=== PATIENT | female | born 1990 | race Caucasian/White ===

== ENCOUNTER 2017-01-23 00:35 | Inpatient (IN) | payer OTHER ==
[~2017-01-23 00:35] MED LIST: BRETHINE 1 MG/ML SQ PRN
[2017-01-23] MEDS ORDERED: Cervidil 10 MG VAG SCH (01:00)
[2017-01-23 04:52] LABS: BASOPHIL % 0.2 % (0.0-0.4); Eosinophil % 0.6 % (0.00-5.0); Granulocytes % 71.3 % (36.0-66.0); Lymphocytes % 17.3 % (24.0-44.0); Mean Cell Volume 97.5 fl (78-100); Mean Corpuscular Hemoglobin 32.1 pg (26-32); Mean Platelet Volume 10.7 fl (6-9.5); Monocytes % 10.6 % (0.0-12.0); Platelet Count 190 K/mm3 (150-450); Red Blood Count 3.55 M/mm3 (4.1-5.4); Red Cell Distribution Width 17.3 % (11.5-14.0); White Blood Count 12.2 K/mm3 (4.0-10.5)
[2017-01-23] MEDS ORDERED: XYLOCAINE 1% HCL 20 ML MDV IJ PRN (11:25)
[2017-01-23] MEDS ORDERED: PITOCIN 30 UNITS/ LR 500 ML 500 ML IV SCH (11:30)
[2017-01-23] MEDS ORDERED: Lactated Ringers 1,000 ML IV SCH (11:30)
[2017-01-23] MEDS ORDERED: BRETHINE 1 MG/ML SQ PRN (11:36)
[2017-01-23] MEDS ORDERED: OB EPIDURAL NAROPIN/SUFENTANIL IN NACL EPIDURAL PRN (14:09)
[2017-01-23] MEDS ORDERED: Ephedrine Sulfate 50 MG/ML IV PRN (14:09)
[2017-01-23] MEDS ORDERED: Lactated Ringers 1,000 ML IV ONE (14:09)
[2017-01-23] MEDS ORDERED: Mylicon 80MG PO PRN (18:46)
[2017-01-23] MEDS ORDERED: MOTRIN 400 MG PO PRN (18:46)
[2017-01-23] MEDS ORDERED: Restoril 15 MG PO PRN (18:46)
[2017-01-23] MEDS ORDERED: TYLENOL EXTRA STRENGTH 500 MG PO PRN (18:46)
[2017-01-23] MEDS ORDERED: TUCKS TP PRN (18:46)
[2017-01-23] MEDS ORDERED: CORTISONE 1% CREAM TP PRN (18:46)
[2017-01-23] MEDS ORDERED: Dulcolax 10 MG SUPP PR PRN (18:46)
[2017-01-23] MEDS ORDERED: Dermoplast Spray TP PRN (18:46)
[2017-01-23] MEDS ORDERED: Ambien 10 MG PO PRN (18:46)
[2017-01-23] MEDS ORDERED: Anucort-HC SUPPOSITORY PR PRN (18:46)
[2017-01-23] MEDS ORDERED: NORCO 5/325 MG PO PRN (18:46)
[2017-01-23 19:10] LABS: ALBUMIN 2.5 g/dL (3.4-5.0); ALKALINE PHOSPHATASE 120 U/L (46-116); ANION GAP 14.2 MEQ/L (5-15); BLOOD UREA NITROGEN 8 mg/dL (9-20); CHLORIDE 106 mEq/L (98-107); Carbon Dioxide 23.8 mEq/L (21-32); Glucose 147 MG/DL (70-110); Potassium 3.7 mEq/L (3.5-5.1); SGOT/AST 11 U/L (15-37); SGPT/ALT 14 U/L (12-78); SODIUM 140 mEq/L (136-145); Total Protein 6.2 gm/dL (6.4-8.2)
[2017-01-23] MEDS ORDERED: Norco 10/325 MG Tablet PO SCH (22:00)
[2017-01-23] MEDS: Colace 100 MG PO SCH (22:21)
[2017-01-24 00:32] VITALS: O2SAT 96
[2017-01-24 05:50] LABS: BASOPHIL % 0.1 % (0.0-0.4); Eosinophil % 0.7 % (0.00-5.0); Granulocytes % 70.6 % (36.0-66.0); Lymphocytes % 17.3 % (24.0-44.0); Mean Cell Volume 97.1 fl (78-100); Mean Platelet Volume 10.1 fl (6-9.5); Monocytes % 11.3 % (0.0-12.0); Platelet Count 147 K/mm3 (150-450); Red Blood Count 3.15 M/mm3 (4.1-5.4); Red Cell Distribution Width 17.4 % (11.5-14.0); White Blood Count 11.3 K/mm3 (4.0-10.5)
[2017-01-24 05:56] LABS: Mean Corpuscular Hemoglobin 32.3 pg (26-32)
[2017-01-24 09:27] VITALS: BP 131/79; PULSE 86
[2017-01-24] MEDS ORDERED: FERREX 150 PO SCH (10:00)
[2017-01-24] MEDS: Colace 100 MG PO SCH (15:16)
== END 2017-01-24 13:55 | disposition home or self-care (01) | DRG 775 ==
LOC: OB 00:35 → OBSVTOIN 13:40
PROVIDERS: ADMIT Family Medicine; ATTEND Family Medicine
PROC: 10E0XZZ Delivery of Products of Conception, External Approach (ICD-10-PCS; principal; 2017-01-23)
DX: O80 Encounter for full-term uncomplicated delivery (principal); Z3A.39 39 weeks gestation of pregnancy; Z37.0 Single live birth
CPT/HCPCS: 01967; 36415; 80053; 80307; 84550; 85025; G0378; J2590; J2795; A9270-GY

== ENCOUNTER 2020-01-12 18:35 | Emergency (ER) | payer OTHER ==
[2020-01-12 18:59] VITALS: O2SAT 99
[2020-01-12 19:11] LABS: Absolute Neutrophil Ct (ANC) 7.49 (1.4-6.9); BASOPHIL % 0.2 % (0.0-0.4); Basophil (Absolute #) 0.02 (0-0.4); Eosinophil % 1.1 % (0.00-5.0); Eosinophil (Absolute #) 0.11 (0-0.5); Hematocrit 33.1 % (35-47); Hemoglobin 11.1 gm/dl (12.0-16.0); Lymphocyte (Absolute #) 1.35 (1.0-4.6); Lymphocytes % 13.9 % (24.0-44.0); Mean Cell Volume 95.7 fl (78-100); Mean Corpuscular Hemoglobin 32.1 pg (26-32); Mean Corpuscular Hgb Concent. 33.5 g/dl (32-36); Monocyte (Absolute #) 0.77 (0.0-1.3); Monocytes % 7.9 % (0.0-12.0); Neutrophil % 76.9 % (36.0-66.0); Platelet Count 158 K/mm3 (150-450); Red Blood Count 3.46 M/mm3 (4.1-5.4); Red Cell Distribution Width 16.4 % (11.5-14.0); White Blood Count 9.7 K/mm3 (4.0-10.5)
[2020-01-12 19:14] LABS: ISTAT CREA 0.6 mg/dL (0.6-1.3)
[2020-01-12 19:17] LABS: Appearance CLEAR (CLEAR); Bilirubin NEGATIVE (NEGATIVE); Blood NEGATIVE Ery/ul (0-5); Glucose NEGATIVE (NEGATIVE); Ketones NEGATIVE (NEGATIVE); Leukocyte Esterase NEGATIVE (NEGATIVE); Nitrite NEGATIVE (NEGATIVE); Protein,Urine Dip NEGATIVE (Negative); Specific Gravity 1.011 (1.005-1.025); Urobilinogen NEGATIVE mg/dL (0-1)
--- NOTE | 2020-01-12 19:53 | ERPHSYRPT ---
- History of Present Illness Time Seen by Provider: 01/12/20 18:55 Source: patient Exam Limitations: no limitations Patient Subjective Stated Complaint: pt here for swelling to hands and feet for her whole , but she states her legs and hands turned blue today and she has tingling both hands and legs. Triage Nursing Assessment: pt walked in, alert. resp easy, skin w/d/p. no swelling hands or legs, cap refill 3 seconds, strong radial pulse, nail beds pink Physician History: This is a 29-year-old white female who was approximately 24 weeks . Patient states that prior to her being she had episodes where her hands and feet would be tingling and have a numbness type burning pain. It has worsened during her . Patient did have a recent elevated RA titer and MOHINI titer. She is also had higher than usual blood pressure for her during this . Her OB doctor has been monitoring her every 1 to 2 weeks. Her urinalysis has been negative for any protein. Today, her hands had a mildly purple tint to them. She states he did not actually turn purple they just appeared to have a tint present. She also feels that there is swelling in both hands as well as swollen in both feet. Her primary care physician told her to come to the emergency room to be evaluated. Patient denies shortness of breath , she denies chest pain, she denies abdominal pain. Timing/Duration: today Severity: mild Modifying Factors: Improves With: nothing Associated Symptoms: denies symptoms Allergies/Adverse Reactions: morphine Allergy (Mild, Verified 01/12/20 18:58) vomitting Home Medications: No Reportable Medications [No Reported Medications] 01/12/20 [History] Hx Tetanus, Diphtheria Vaccination/Date Given: No (unknown) Hx Influenza Vaccination/Date Given: Yes (4 yrs ago) Hx Pneumococcal Vaccination/Date Given: (unknown) Immunizations Up to Date: Yes Travel Risk - International Travel Have you traveled outside of the country in past 3 weeks: No Have you or anyone close to you been diagnosed with or: No Do your reside in a community with a known COVID-19 case?: Yes If Yes where:: [place] - Coronavirus Screening Has patient experienced Coronavirus symptoms: No - Review of Systems Constitutional: No Symptoms Eyes: No Symptoms Ears, Nose, & Throat: No Symptoms Respiratory: No Symptoms Cardiac: No Symptoms Abdominal/Gastrointestinal: No Symptoms Genitourinary Symptoms: No Symptoms Musculoskeletal: Other (Paresthesias and swelling to bilateral hands and feet) Skin: No Symptoms Neurological: Parasthesia (Lateral hands and feet) Psychological: No Symptoms Endocrine: No Symptoms Hematologic/Lymphatic: No Symptoms Immunological/Allergic: No Symptoms All Other Systems: Reviewed and Negative - Past Medical History Pertinent Past Medical History: No Neurological History: Migraines ENT History: No Pertinent History Cardiac History: No Pertinent History Respiratory History: No Pertinent History Endocrine Medical History: No Pertinent History Musculoskeletal History: Other GI Medical History: Gallbladder Disease History: No Pertinent History Psycho-Social History: Anxiety, Attention Deficit Disorder, Bipolar, Depression Female Reproductive Disorders: No Pertinent History Other Medical History: body aches all over and states she will be tested for arthritis and fibromyalgia after . - Past Surgical History Past Surgical History: Yes (Gall bladder and diaphragm) Neuro Surgical History: No Pertinent History Cardiac: No Pertinent History Respiratory: Other Gastrointestinal: Cholecystectomy Genitourinary: No Pertinent History Musculoskeletal: No Pertinent History Female Surgical History: No Pertinent History Other Surgical History: diaphragm surgery as an infant - Social History Smoking Status: Light tobacco smoker How long have you smoked: 12 Exposure to second hand smoke: No Drug Use: marijuana Patient Lives Alone: No - Female History Hx Last Menstrual Period: jul 2020 Hx Now: Yes Expected Date of Delivery: 05/07/20 - Nursing Vital Signs Nursing Vital Signs: Initial Vital Signs Temperature 98.3 F 01/12/20 18:46 Pulse Rate 86 01/12/20 18:46 Respiratory Rate 18 01/12/20 18:46 Blood Pressure 162/90 01/12/20 18:46 O2 Sat by Pulse Oximetry 99 01/12/20 18:46 Pain Scale Pain Intensity 5 - Physical Exam General Appearance: no apparent distress, alert, anxiety Eye Exam: PERRL/EOMI, eyes nml inspection Ears, Nose, Throat Exam: normal ENT inspection, moist mucous membranes Neck Exam: normal inspection, non-tender, supple, full range of motion Respiratory Exam: normal breath sounds, lungs clear, No chest tenderness, No respiratory distress Cardiovascular Exam: regular rate/rhythm, normal heart sounds, normal peripheral pulses Gastrointestinal/Abdomen Exam: soft, other (Abdomen.) Pelvic Exam: not done Rectal Exam: not done Back Exam: normal inspection, normal range of motion, No CVA tenderness, No vertebral tenderness Extremity Exam: normal inspection, normal range of motion, pelvis stable Neurologic Exam: alert, oriented x 3, cooperative, 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 nml as tested, normal mood/affect, nml cerebellar function, nml station & gait, sensation nml Skin Exam: normal color, warm, dry Lymphatic Exam: No adenopathy SpO2 Interpretation: normal SpO2: 99 O2 Delivery: Room Air - Course Nursing assessment & vital signs reviewed: Yes Ordered Tests: Active Orders 24 hr Category Date Time Status CBC W DIFF Stat Lab 01/12/20 19:08 Completed UA W/RFX UR CULTURE Stat Lab 01/12/20 19:05 Completed Lab/Rad Data: Laboratory Result Diagrams 01/12/20 19:08 01/12/20 19:08 Laboratory Results 01/12/20 01/12/20 01/12/20 Range/Units 19:08 19:08 19:05 WBC 9.7 (4.0-10.5) K/mm3 RBC 3.46 L (4.1-5.4) M/mm3 Hgb 11.1 L (12.0-16.0) gm/dl Hct 33.1 L (35-47) % MCV 95.7 (78-100) fl MCH 32.1 H (26-32) pg MCHC 33.5 (32-36) g/dl RDW 16.4 H (11.5-14.0) % Plt Count 158 (150-450) K/mm3 MPV 10.0 (7.5-11.0) fl Gran % 76.9 H (36.0-66.0) % Eos # (Auto) 0.11 (0-0.5) Absolute Lymphs (auto) 1.35 (1.0-4.6) Absolute Monos (auto) 0.77 (0.0-1.3) Lymphocytes % 13.9 L (24.0-44.0) % Monocytes % 7.9 (0.0-12.0) % Eosinophils % 1.1 (0.00-5.0) % Basophils % 0.2 (0.0-0.4) % Absolute Granulocytes 7.49 H (1.4-6.9) Basophils # 0.02 (0-0.4) Sodium Direct 137 L (138-146) mmol/L Potassium 3.8 (3.5-4.9) mmol/L Chloride 103 (98-109) mmol/L Carbon Dioxide 23 L (24-29) mmol/L Venous BUN 8 (8-26) mg/dL Creatinine 0.6 (0.6-1.3) mg/dL Glucose 99 (70-105) mg/dL Ionized Calcium 1.19 (1.12-1.32) mmol/L Urine Color YELLOW (YELLOW) Urine Appearance CLEAR (CLEAR) Urine pH 6.0 (5-6) Ur Specific [place] 1.011 (1.005-1.025) Urine Protein NEGATIVE (Negative) Urine Ketones NEGATIVE (NEGATIVE) Urine Blood NEGATIVE (0-5) José/ul Urine Nitrite NEGATIVE (NEGATIVE) Urine Bilirubin NEGATIVE (NEGATIVE) Urine Urobilinogen NEGATIVE (0-1) mg/dL Ur Leukocyte Esterase NEGATIVE (NEGATIVE) Urine WBC (Auto) NONE (0-5) /HPF Urine RBC (Auto) NONE (0-2) /HPF U Epithel Cells (Auto) NONE (FEW) /HPF Urine Bacteria (Auto) NONE (NEGATIVE) /HPF Urine Culture Reflexed NO (NO) Urine Glucose NEGATIVE (NEGATIVE) mg/dL - Progress Progress: unchanged Counseled pt/family regarding: lab results, diagnosis, need for follow-up - Departure Departure Disposition: Home Clinical Impression: Paresthesia of both hands, Paresthesia of both feet, Swelling of both hands, Bilateral swelling of feet Condition: Stable Critical Care Time: No Referrals: JOCELINE JAEGER [Primary Care Provider] - Additional Instructions: Take Tylenol for the pain. 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
[2020-01-12 20:12] VITALS: BP 139/89; PULSE 87
== END 2020-01-12 20:11 | disposition home or self-care (01) ==
LOC: ED 18:35
DX: R20.2 Paresthesia of skin (principal); M79.89 Other specified soft tissue disorders; F31.9 Bipolar disorder, unspecified; M19.90 Unspecified osteoarthritis, unspecified site; Z72.0 Tobacco use; F19.90 Other psychoactive substance use, unspecified, uncomplicated
CPT/HCPCS: 36415; 80047; 81001; 85025; 99284

== ENCOUNTER 2020-04-11 18:12 | Observation (INO) | payer OTHER ==
[2020-04-11 19:51] LABS: Amphetamine,Urine NEGATIVE (NEGATIVE); Barbiturate,Urine NEGATIVE (NEGATIVE); Benzodiazepine,Urine NEGATIVE (NEGATIVE); Cocaine,Urine NEGATIVE (NEGATIVE); Methadone,Urine NEGATIVE (NEGATIVE); Opiate,Urine NEGATIVE (NEGATIVE); PCP,Urine NEGATIVE (NEGATIVE); THC,Urine NEGATIVE (NEGATIVE)
[2020-04-11 20:12] LABS: Absolute Neutrophil Ct (ANC) 7.45 (1.4-6.9); BASOPHIL % 0.2 % (0.0-0.4); Basophil (Absolute #) 0.02 (0-0.4); Eosinophil % 0.4 % (0.00-5.0); Eosinophil (Absolute #) 0.04 (0-0.5); Hematocrit 32.7 % (35-47); Hemoglobin 10.6 gm/dl (12.0-16.0); Lymphocyte (Absolute #) 1.63 (1.0-4.6); Lymphocytes % 16.5 % (24.0-44.0); Mean Cell Volume 97.3 fl (78-100); Mean Corpuscular Hemoglobin 31.5 pg (26-32); Mean Corpuscular Hgb Concent. 32.4 g/dl (32-36); Mean Platelet Volume 9.6 fl (7.5-11.0); Monocyte (Absolute #) 0.76 (0.0-1.3); Monocytes % 7.7 % (0.0-12.0); Neutrophil % 75.2 % (36.0-66.0); Platelet Count 197 K/mm3 (150-450); Red Blood Count 3.36 M/mm3 (4.1-5.4); White Blood Count 9.9 K/mm3 (4.0-10.5)
[2020-04-11 20:23] LABS: ALBUMIN 3.3 g/dL (3.5-5.0); ALKALINE PHOSPHATASE 131 U/L (38-126); ANION GAP 9.7 MEQ/L (5-15); BLOOD UREA NITROGEN 12 mg/dL (7-17); CHLORIDE 107 mmol/L (98-107); Calcium 8.6 mg/dL (8.4-10.2); Carbon Dioxide 22 mmol/L (22-30); Creatinine 1 0.75 mg/dL (0.52-1.04); Glucose 122 mg/dL (74-106); Potassium 3.7 mmol/L (3.5-5.1); SGOT/AST 15 U/L (14-36); SGPT/ALT 10 U/L (0-35); SODIUM 135 mmol/L (137-145); Total Protein 6.3 g/dL (6.3-8.2); Uric Acid 4.1 mg/dL (2.6-6.0)
--- NOTE | 2020-04-12 09:24 | XRAY ---
Indication: well-being. Two-dimensional OB ultrasound performed. Comparison: March 12, 2020. There is again a single viable intrauterine in cephalic presentation. heart rate 130 BPM. anatomy previously documented. Anterior placenta without abruption/previa. BPD measures 8.40 cm corresponding to 33 weeks 6 days. HC measures 31.46 cm corresponding to 35 weeks 2 days. AC measures 30.69 cm corresponding to 34 weeks 4 days. FL measures 7.19 cm corresponding to 36 weeks 6 days. Estimated weight 5 lbs. 12 oz., +/-14 ounces. Approximately 22 percentile. MARCOS is 14.3 cm. Impression: Again single viable intrauterine with mean gestational age 35 weeks 1 day. There has been progression of with fetus now measuring 9 days smaller with respect to first exam September 22, 2019.
--- NOTE | 2020-04-12 09:26 | XRAY ---
Indication: well-being. Ultrasound biophysical profile exam performed. Comparison: None There is a single viable intrauterine with heart rate 130 BPM. Four-quadrant MARCOS is 14.3 cm. 2 points given for breathing, movements, tone, and qualitative amniotic fluid volume. Impression: Total biophysical profile score is 8 out of 8.
[2020-04-12 20:10] LABS: 24 HR TOT. PROTEIN CALCULATION 0.18 GM/DAY (0.04-0.15)
[2020-04-12] MEDS ORDERED: TYLENOL 325 MG PO PRN (21:18)
[2020-04-12] MEDS: Abilify 10 MG PO SCH (21:45)
[2020-04-12] MEDS: Trandate 100 MG PO SCH (21:45)
[2020-04-12] MEDS ORDERED: NORCO 5/325 MG PO ONE (22:00)
[2020-04-12] MEDS ORDERED: NORCO 5/325 MG PO PRN (23:14)
[2020-04-13 00:28] VITALS: O2SAT 99
[2020-04-13] MEDS: Trandate 100 MG PO SCH (10:09)
[2020-04-13] MEDS: Abilify 10 MG PO SCH (10:09)
[2020-04-13 13:56] VITALS: BP 135/87; PULSE 84
== END 2020-04-13 13:55 | disposition home or self-care (01) ==
LOC: OB 18:12
PROVIDERS: ADMIT Family Medicine; ATTEND Family Medicine
DX: O13.3 Gestational [pregnancy-induced] hypertension without significant proteinuria, third trimester (principal); Z3A.36 36 weeks gestation of pregnancy; F41.9 Anxiety disorder, unspecified
CPT/HCPCS: 36415; 76816; 76819; 80053; 80307; 81050; 84156; 84550; 85025; G0378; A9270-GY

== ENCOUNTER 2020-04-18 08:30 | Inpatient (IN) | payer OTHER ==
[2020-04-18] MEDS ORDERED: TRANDATE 20 MG/5 ML SYRINGE IV PRN (14:29)
--- NOTE | 2020-04-18 15:29 | XRAY ---
Indication: well-being. Ultrasound biophysical profile exam performed. Comparison: April 12, 2020. Again there is a single viable intrauterine with heart rate 141 bpm. Four-quadrant MARCOS is 13.7 cm. 2 points given for movement, tone, and qualitative amniotic fluid volume. 0 points for breathing. Impression: Total biophysical profile score is now 6 out of 8.
[2020-04-18 16:13] LABS: ALBUMIN 3.7 g/dL (3.5-5.0); ALKALINE PHOSPHATASE 173 U/L (38-126); ANION GAP 10.4 MEQ/L (5-15); BLOOD UREA NITROGEN 9 mg/dL (7-17); CHLORIDE 105 mmol/L (98-107); Calcium 8.8 mg/dL (8.4-10.2); Carbon Dioxide 22 mmol/L (22-30); Creatinine 1 0.69 mg/dL (0.52-1.04); EST GLOMERULAR FILTRATION RATE > 60.0 ML/MIN; Glucose 78 mg/dL (74-106); LDH-LACTATE DEHYDROGENASE 161 U/L (120-246); SGOT/AST 24 U/L (14-36); SGPT/ALT 12 U/L (0-35); SODIUM 133 mmol/L (137-145)
[2020-04-18 16:14] LABS: Absolute Neutrophil Ct (ANC) 9.88 (1.4-6.9); BASOPHIL % 0.2 % (0.0-0.4); Basophil (Absolute #) 0.02 (0-0.4); Eosinophil % 0.3 % (0.00-5.0); Eosinophil (Absolute #) 0.04 (0-0.5); Hematocrit 33.8 % (35-47); Hemoglobin 11.1 gm/dl (12.0-16.0); Lymphocyte (Absolute #) 1.53 (1.0-4.6); Lymphocytes % 12.4 % (24.0-44.0); Mean Cell Volume 96.8 fl (78-100); Mean Corpuscular Hemoglobin 31.8 pg (26-32); Mean Corpuscular Hgb Concent. 32.8 g/dl (32-36); Mean Platelet Volume 9.8 fl (7.5-11.0); Monocyte (Absolute #) 0.85 (0.0-1.3); Monocytes % 6.9 % (0.0-12.0); Neutrophil % 80.2 % (36.0-66.0); Platelet Count 196 K/mm3 (150-450); Red Blood Count 3.49 M/mm3 (4.1-5.4); Red Cell Distribution Width 17.1 % (11.5-14.0); White Blood Count 12.3 K/mm3 (4.0-10.5)
[2020-04-18 16:45] LABS: Barbiturate,Urine NEGATIVE (NEGATIVE); Benzodiazepine,Urine NEGATIVE (NEGATIVE); Cocaine,Urine NEGATIVE (NEGATIVE); Creatinine, Urine Random 169.2 mg/dl (30-125); Methadone,Urine NEGATIVE (NEGATIVE); Opiate,Urine NEGATIVE (NEGATIVE); PCP,Urine NEGATIVE (NEGATIVE); THC,Urine NEGATIVE (NEGATIVE)
[2020-04-18] MEDS ORDERED: XYLOCAINE 1% HCL 20 ML MDV IJ PRN (17:50)
[2020-04-18 17:53] LABS: Amphetamine,Urine POSITIVE (NEGATIVE)
[2020-04-18] MEDS ORDERED: PITOCIN 30 UNITS/ LR 500 ML 30 UNITS/500 ML IV.SOLN. IV SCH (18:00)
[2020-04-18] MEDS: CYTOTEC PO SCH ×3 (18:51→23:54)
[2020-04-18] MEDS ORDERED: TYLENOL 325 MG PO PRN (21:20)
[2020-04-18] MEDS: Trandate 100 MG PO SCH (21:30)
[2020-04-18] MEDS: Abilify 10 MG PO SCH (21:31)
[2020-04-19] MEDS: CYTOTEC PO SCH ×3 (01:53→05:51)
[2020-04-19] MEDS: Trandate 100 MG PO SCH ×2 (09:23→22:04)
[2020-04-19] MEDS: Abilify 10 MG PO SCH ×2 (09:24→22:03)
[2020-04-19] MEDS ORDERED: PITOCIN 30 UNITS/ LR 500 ML 30 UNITS/500 ML IV.SOLN. IV SCH (10:00)
[2020-04-19] MEDS ORDERED: Lactated Ringers 1,000 ML IV ONE (10:00)
[2020-04-19] MEDS ORDERED: Ephedrine Sulfate 50 MG/ML IV PRN (10:00)
[2020-04-19] MEDS ORDERED: OB EPIDURAL NAROPIN/SUFENTANIL IN NACL EPIDURAL PRN (10:00)
[2020-04-19] MEDS ORDERED: Lactated Ringers 1,000 ML IV SCH (10:00)
[2020-04-19] MEDS ORDERED: TYLENOL EXTRA STRENGTH 500 MG PO PRN (14:18)
[2020-04-19] MEDS ORDERED: Dermoplast Spray TP PRN (14:18)
[2020-04-19] MEDS ORDERED: Dulcolax 10 MG SUPP PR PRN (14:22)
[2020-04-19] MEDS ORDERED: LANSINOH 40 GM TOP PRN (14:22)
[2020-04-19] MEDS ORDERED: TUCKS TP PRN (14:22)
[2020-04-19] MEDS ORDERED: Restoril 15 MG PO PRN (14:22)
[2020-04-19] MEDS ORDERED: Anucort-HC SUPPOSITORY PR PRN (14:22)
[2020-04-19] MEDS ORDERED: Mylicon 80MG PO PRN (14:22)
[2020-04-19] MEDS ORDERED: NORCO 5/325 MG PO PRN (14:22)
[2020-04-19] MEDS ORDERED: Ambien 10 MG PO PRN (14:22)
[2020-04-19] MEDS ORDERED: CORTISONE 1% CREAM TP PRN (14:22)
[2020-04-19] MEDS ORDERED: BENADRYL 50 MG/ML IV PRN (14:23)
[2020-04-19] MEDS: NICODERM CQ 14 MG TOP SCH (15:25)
[2020-04-19] MEDS: MOTRIN 400 MG PO PRN (22:04)
[2020-04-19] MEDS: Colace 100 MG PO SCH (22:04)
[2020-04-20] MEDS: MOTRIN 400 MG PO PRN ×2 (04:09→19:57)
[2020-04-20 04:26] VITALS: O2SAT 100
[2020-04-20 05:49] LABS: Absolute Neutrophil Ct (ANC) 7.44 (1.4-6.9); BASOPHIL % 0.2 % (0.0-0.4); Basophil (Absolute #) 0.02 (0-0.4); Eosinophil % 0.8 % (0.00-5.0); Eosinophil (Absolute #) 0.08 (0-0.5); Hematocrit 32.2 % (35-47); Hemoglobin 10.3 gm/dl (12.0-16.0); Lymphocyte (Absolute #) 1.78 (1.0-4.6); Lymphocytes % 17.6 % (24.0-44.0); Mean Cell Volume 98.8 fl (78-100); Mean Corpuscular Hemoglobin 31.6 pg (26-32); Mean Platelet Volume 9.6 fl (7.5-11.0); Monocyte (Absolute #) 0.82 (0.0-1.3); Monocytes % 8.1 % (0.0-12.0); Neutrophil % 73.3 % (36.0-66.0); Platelet Count 163 K/mm3 (150-450); Red Blood Count 3.26 M/mm3 (4.1-5.4); White Blood Count 10.1 K/mm3 (4.0-10.5)
[2020-04-20] MEDS: Colace 100 MG PO SCH ×2 (09:45→21:16)
[2020-04-20] MEDS: Trandate 100 MG PO SCH ×2 (09:45→21:16)
[2020-04-20] MEDS: FERREX 150 PO SCH (09:45)
[2020-04-20] MEDS: NICODERM CQ 14 MG TOP SCH (15:42)
[2020-04-20] MEDS ORDERED: Abilify 10 MG PO SCH (22:00)
[2020-04-21] MEDS: MOTRIN 400 MG PO PRN (02:00)
[2020-04-21 08:09] VITALS: BP 133/80; PULSE 78
--- NOTE | 2020-04-21 08:36 | PCM.DS ---
Discharge Summary Date of Admission: 04/19/20 08:30 Admitting Physician: DEANDRE WALKER MD Primary Care Provider: JOCELINE JAEGER Allergies Allergies morphine Allergy (Mild, Verified 04/11/20 19:05) vomitting Hospital Summary - Hospital Course Hospital Course: patient induced at 37wks EGA for gest htn, amphetamines on drug screen. doing great , mild lochia, bottle feeding. - Vitals & Intake/Output Vital Signs: Vital Signs Temperature 98.2 F 04/21/20 08:00 Pulse Rate 78 04/21/20 08:00 Respiratory Rate 18 04/21/20 08:00 Blood Pressure 133/80 04/21/20 08:00 O2 Sat by Pulse Oximetry 100 04/20/20 04:00 Intake & Output: Intake & Output 04/18/20 04/19/20 04/20/20 04/21/20 11:59 11:59 11:59 11:59 Intake Total 960 1580 Output Total 450 Balance 510 1580 Weight 92.533 kg - Lab Result Diagrams: 04/20/20 05:39 04/18/20 15:56 Micro Results-Entire Visit: Microbiology 04/19/20 12:42 Urine Culture - Preliminary Urine, Indwelling Catheter NO GROWTH TO DATE - Procedures and Test Procedures and Tests throughout Hospitalization: Therapy Orders & Screens 04/19/20 13:14 Standby STAT Comment: Diagnosis: GESTATIONAL HYPERTENSION Discharge Exam General Appearance: no apparent distress, alert Respiratory Exam: normal breath sounds, lungs clear, No respiratory distress Cardiovascular Exam: regular rate/rhythm, normal heart sounds Gastrointestinal/Abdomen Exam: soft, No tenderness, No mass Skin Exam: normal color, warm, dry Final Diagnosis/Problem List - Final Discharge Diagnosis/Problem (1) Vaginal delivery Current Visit: Yes Status: Acute Code(s): O80 - ENCOUNTER FOR FULL-TERM UNCOMPLICATED DELIVERY (2) Gestational hypertension Current Visit: Yes Status: Acute Assessment & Plan: continue labetalol, well controlled at this time Code(s): O13.9 - GESTATIONAL HTN W/O SIGNIFICANT PROTEINURIA, UNSP TRIMESTER - Discharge Disposition: Home, Self-Care Condition: Stable Prescriptions: Continue Labetalol HCl 100 mg [Trandate 100 MG] 100 mg PO BID ARIPiprazole [Aripiprazole] 5 mg PO HS Follow up with: JOCELINE JAEGER [Primary Care Provider] - 1 Week
[2020-04-21] MEDS ORDERED: Adacel Vial IM ONE (10:00)
[2020-04-21] MEDS: Colace 100 MG PO SCH (10:22)
[2020-04-21] MEDS: FERREX 150 PO SCH (10:22)
[2020-04-21] MEDS: Trandate 100 MG PO SCH (10:22)
== END 2020-04-21 13:30 | disposition home or self-care (01) | DRG 807 ==
LOC: OB 08:30 → OBSVTOIN 04-19 08:30
PROVIDERS: ADMIT Family Medicine; ATTEND Family Medicine
PROC: 10E0XZZ Delivery of Products of Conception, External Approach (ICD-10-PCS; principal; 2020-04-20)
DX: O13.4 Gestational [pregnancy-induced] hypertension without significant proteinuria, complicating childbirth (principal); Z37.0 Single live birth; Z3A.37 37 weeks gestation of pregnancy
CPT/HCPCS: 36415; 59025; 76816; 76819; 80053; 80307; 82570; 83615; 84156; 85025; 87086; 90471; 90715; 94799; G0378; J1200; J2590; J2795; A9270-GY

== ENCOUNTER 2022-03-18 09:27 | Emergency (ER) | payer OTHER ==
[2022-03-18] MEDS ORDERED: Erythromycin 3.5 GM OPHTH. OP ONE (10:00)
--- NOTE | 2022-03-18 10:02 | ERPHSYRPT ---
- History of Present Illness Time Seen by Provider: 03/18/22 10:00 Historian: patient Exam Limitations: no limitations Patient Subjective Stated Complaint: C/O sore throat, "profuse sweating", new cough, some abdominal pain at times but not right now. Triage Nursing Assessment: Patient ambulated back to ED without difficulties. Patient noted to be very anxious. She is speaking very rapidly and changing topics of conversation often. It is hard to follow patient's conversation at times due to jumping around from one thing to the next in topic of conversation. She is alert and oriented. Skin noted to be moist. An occassional, weak, non-productive cough noted while assessing patient. Physician History: Patient is a 31-year-old female presents to emergency department for evaluation of epigastric pain. She states epigastric pain started this morning. Patient states that she has had epigastric pain in association with a "bad gallbladder". Patient states the pain feels the same way as it did when she had her "bad gallbladder". Pain described as an ache that is localized. No radiation. Pain is minimal at this time. However patient states pain was 7 out of 10 at its worst. No trauma. No fever. No nausea no vomiting. No diarrhea. No no rash. Patient also states that she has been experiencing intermittent cramping in her legs. No back pain. Patient also states that she believes she has bilateral conjunctivitis. Both eyes are matted shut this morning. Patient states her eyes appear more red than normal. Patient is speaking quickly and appears to become frustrated when asked specific questions regarding her complaints. Patient also requesting that we check her thyroid gland. Patient states that her mother has a history of thyroid dysfunction and is requesting that we evaluate patient's thyroid. Patient voices no other complaints or concerns this time. Timing/Duration: today Activities at Onset: none Quality: aching Abdominal Pain Onset Location: epigastric Pain Radiation: no radiation Severity of Pain-Max: moderate Severity of Pain-Current: mild Modifying Factors: Improves With: nothing Associated Symptoms: denies symptoms, No chest pain, No fever/chills, No heartburn, No shortness of breath, No syncope, No vomiting, No weakness Previous symptoms: same symptoms as today Allergies/Adverse Reactions: morphine Allergy (Mild, Verified 03/18/22 09:42) vomitting Home Medications: Bupropion HCl [Wellbutrin Xl] 1 tab PO DAILY 03/18/22 [History] Lisinopril/Hydrochlorothiazide [Lisinopril-Hctz 10-12.5 mg Tab] 1 tab PO DAILY 03/18/22 [History] Lurasidone HCl [Latuda] 1 tab PO DAILY 03/18/22 [History] Hx Tetanus, Diphtheria Vaccination/Date Given: Yes Hx Influenza Vaccination/Date Given: No Hx Pneumococcal Vaccination/Date Given: No Immunizations Up to Date: Yes Travel Risk - International Travel Have you traveled outside of the country in past 3 weeks: No - Coronavirus Screening Are you exhibiting any of the following symptoms?: Yes Symptoms: Cough: New Onset, Shortness of Breath - Vaccine Status Have you recieved a Covid-19 vaccination: Yes Crate Maker: zLense - Vaccination Dates Date of 2cond Vaccination (if applicable): 2020 - Review of Systems Constitutional: No Symptoms, No Fever, No Chills Eyes: No Symptoms Ears, Nose, & Throat: No Symptoms Respiratory: No Symptoms, No Cough, No Dyspnea Cardiac: No Symptoms, No Chest Pain, No Edema, No Syncope Abdominal/Gastrointestinal: No Symptoms, No Abdominal Pain, No Nausea, No Vomiting, No Diarrhea Genitourinary Symptoms: No Symptoms, No Dysuria Musculoskeletal: No Symptoms, No Back Pain, No Neck Pain Skin: No Symptoms, No Rash Neurological: No Symptoms, No Dizziness, No Focal Weakness, No Sensory Changes Psychological: No Symptoms Endocrine: No Symptoms Hematologic/Lymphatic: No Symptoms Immunological/Allergic: No Symptoms All Other Systems: Reviewed and Negative - Past Medical History Pertinent Past Medical History: Yes Neurological History: Migraines ENT History: No Pertinent History Cardiac History: No Pertinent History Respiratory History: No Pertinent History Endocrine Medical History: No Pertinent History Musculoskeletal History: Other GI Medical History: Gallbladder Disease History: No Pertinent History Psycho-Social History: Anxiety, Attention Deficit Disorder, Bipolar, Depression Female Reproductive Disorders: No Pertinent History Other Medical History: body aches all over and states she will be tested for arthritis and fibromyalgia after . - Past Surgical History Past Surgical History: Yes (Gall bladder and diaphragm) Neuro Surgical History: No Pertinent History Cardiac: No Pertinent History Respiratory: Other Gastrointestinal: Cholecystectomy Genitourinary: No Pertinent History Musculoskeletal: No Pertinent History Female Surgical History: No Pertinent History Other Surgical History: diaphragm surgery as an infant - Social History Smoking Status: Current every day smoker How long have you smoked: 20 years Exposure to second hand smoke: Yes Drug Use: none Patient Lives Alone: No - Female History Hx Last Menstrual Period: A weeka go Hx Now: No - Nursing Vital Signs Nursing Vital Signs: Initial Vital Signs Temperature 97.4 F 03/18/22 09:44 Pulse Rate 107 H 03/18/22 09:44 Respiratory Rate 20 03/18/22 09:44 Blood Pressure 144/116 03/18/22 09:44 O2 Sat by Pulse Oximetry 100 03/18/22 09:44 Pain Scale Pain Intensity 0 - Physical Exam General Appearance: no apparent distress, alert Eye Exam: PERRL/EOMI, eyes nml inspection Ears, Nose, Throat Exam: normal ENT inspection, TMs normal, pharynx normal, moist mucous membranes Neck Exam: normal inspection, non-tender, supple, full range of motion Respiratory Exam: normal breath sounds, lungs clear, airway intact, No respiratory distress Cardiovascular Exam: regular rate/rhythm, normal heart sounds, normal peripheral pulses Gastrointestinal/Abdomen Exam: soft, tenderness (Mild epigastric tenderness), No normal bowel sounds, No mass Back Exam: normal inspection, normal range of motion, No CVA tenderness, No vertebral tenderness Extremity Exam: normal inspection, normal range of motion, pelvis stable Neurologic Exam: alert, oriented x 3, cooperative, normal mood/affect, nml cerebellar function, sensation nml, No motor deficits Skin Exam: normal color, warm, dry SpO2 Interpretation: normal SpO2: 100 O2 Delivery: Room Air - Course Nursing assessment & vital signs reviewed: Yes EKG Interpreted by Me: RATE, Sinus Tach (100), NORMAL AXIS, NORMAL INTERVALS - CT Exams Abdomen/Pelvis CT Interpretation: Tele-radiologist Report (Splenomegaly, 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) Ordered Tests: Active Orders 24 hr Category Date Time Status EKG-ER Only STAT Care 03/18/22 10:03 Active IV Insertion STAT Care 03/18/22 10:03 Active ABDOMEN AND PELVIS W/0 CONTRAS [CT] Stat Exams 03/18/22 10:04 Completed CBC W DIFF Stat Lab 03/18/22 10:12 Completed CMP Stat Lab 03/18/22 10:12 Completed HCG,QUALITATIVE URINE Stat Lab 03/18/22 11:11 Completed LIPASE Stat Lab 03/18/22 10:12 Completed TROPONIN Q3H Lab 03/18/22 10:12 Completed TROPONIN Q3H Lab 03/18/22 13:15 Ordered TROPONIN Q3H Lab 03/18/22 16:15 Ordered TROPONIN Q3H Lab 03/18/22 19:15 Ordered TROPONIN Q3H Lab 03/18/22 22:15 Ordered TSH [TSH, 3RD Generation] Stat Lab 03/18/22 10:12 Completed UA W/RFX CULTURE Stat Lab 03/18/22 11:11 Completed Urine Triage Profile Stat Lab 03/18/22 11:11 Completed Medication Summary Discontinued Medications Generic Name Dose Route Start Last Admin Trade Name Freq PRN Reason Stop Dose Admin Erythromycin 3.5 gm 03/18/22 10:00 03/18/22 10:14 Erythromycin Base 3.5 Gm Tube Eye Ointment OP 03/18/22 10:01 Not Given STAT ONE Erythromycin Confirm 03/18/22 10:05 Erythromycin Base 1 Gm Tube Eye Ointment Administered 03/18/22 10:06 Dose 1 gm .ROUTE .STK-MED ONE Erythromycin 1 gm 03/18/22 10:06 03/18/22 10:09 Erythromycin Base 1 Gm Tube Eye Ointment OP 03/18/22 10:07 1 gm STAT STA Administration Lab/Rad Data: Laboratory Result Diagrams 03/18/22 10:12 03/18/22 10:12 Laboratory Results 03/18/22 03/18/22 03/18/22 Range/Units 11:11 11:11 11:11 WBC (4.0-10.5) x10^3/uL RBC (4.1-5.4) x10^6/uL Hgb (12.0-16.0) g/dL Hct (35-47) % MCV (78-100) fL MCH (26-32) pg MCHC (32-36) g/dL RDW (11.5-14.0) % Plt Count (150-450) x10^3/uL MPV (7.5-11.0) fL Gran % (36.0-66.0) % Immature Gran % (Auto) (0.00-0.4) % Nucleat RBC Rel Count (0.00-0.1) % Eos # (Auto) (0-0.5) x10^3/uL Immature Gran # (Auto) (0.00-0.03) x10^3u/L Absolute Lymphs (auto) (1.0-4.6) x10^3/uL Absolute Monos (auto) (0.0-1.3) x10^3/uL Absolute Nucleated RBC (0.00-0.01) x10^3u/L Lymphocytes % (24.0-44.0) % Monocytes % (0.0-12.0) % Eosinophils % (0.00-5.0) % Basophils % (0.0-0.4) % Absolute Granulocytes (1.4-6.9) x10^3/uL Basophils # (0-0.4) x10^3/uL Sodium (137-145) mmol/L Potassium (3.5-5.1) mmol/L Chloride (98-107) mmol/L Carbon Dioxide (22-30) mmol/L Anion Gap (5-15) MEQ/L BUN (7-17) mg/dL Creatinine (0.52-1.04) mg/dL Estimated GFR ML/MIN Glucose (74-106) mg/dL Calcium (8.4-10.2) mg/dL Total Bilirubin (0.2-1.3) mg/dL AST (14-36) U/L ALT (0-35) U/L Alkaline Phosphatase (38-126) U/L Troponin I (0.000-0.034) ng/mL Serum Total Protein (6.3-8.2) g/dL Albumin (3.5-5.0) g/dL Lipase (23-300) U/L TSH 3rd Generation (0.47-4.68) mIU/L Urinalys Dipstick Clnc MAIN LAB Urine Color YELLOW (YELLOW) Urine Appearance CLEAR (CLEAR) Urine pH 5.5 (5-6) Ur Specific [place] 1.025 (1.005-1.025) POC Urine Protein Conf NEGATIVE (Negative) Urine Ketones NEGATIVE (NEGATIVE) Urine Nitrite NEGATIVE (NEGATIVE) Urine Bilirubin NEGATIVE (NEGATIVE) Urine Urobilinogen 0.2 (0-1) mg/dL Urine Leukocytes NEGATIVE (NEGATIVE) Urine WBC (Auto) NONE (0-5) /HPF Urine RBC (Auto) NONE (0-2) /HPF U Epithel Cells (Auto) NONE (FEW) /HPF Urine Bacteria (Auto) NONE (NEGATIVE) /HPF Urine RBC NEGATIVE (0-5) José/ul Urine Mucus (Auto) SLIGHT (NEGATIVE) /HPF Ur Culture Indicated? NO Urine Glucose NEGATIVE (NEGATIVE) mg/dL Urine HCG, Qual NEGATIVE (Negative) Urine Opiates Level NEGATIVE (NEGATIVE) Ur Methadone NEGATIVE (NEGATIVE) Urine Barbiturates NEGATIVE (NEGATIVE) Ur Phencyclidine (PCP) NEGATIVE (NEGATIVE) Urine Amphetamine POSITIVE (NEGATIVE) U Benzodiazepine Level NEGATIVE (NEGATIVE) Urine Cocaine NEGATIVE (NEGATIVE) Urine Marijuana (THC) NEGATIVE (NEGATIVE) 03/18/22 03/18/22 03/18/22 Range/Units 10:12 10:12 10:12 WBC 9.3 (4.0-10.5) x10^3/uL RBC 4.32 (4.1-5.4) x10^6/uL Hgb 12.9 (12.0-16.0) g/dL Hct 39.0 (35-47) % MCV 90.3 (78-100) fL MCH 29.9 (26-32) pg MCHC 33.1 (32-36) g/dL RDW 16.2 H (11.5-14.0) % Plt Count 235 (150-450) x10^3/uL MPV 9.8 (7.5-11.0) fL Gran % 73.9 H (36.0-66.0) % Immature Gran % (Auto) 0.2 (0.00-0.4) % Nucleat RBC Rel Count 0.0 (0.00-0.1) % Eos # (Auto) 0.07 (0-0.5) x10^3/uL Immature Gran # (Auto) 0.02 (0.00-0.03) x10^3u/L Absolute Lymphs (auto) 1.44 (1.0-4.6) x10^3/uL Absolute Monos (auto) 0.87 (0.0-1.3) x10^3/uL Absolute Nucleated RBC 0.00 (0.00-0.01) x10^3u/L Lymphocytes % 15.5 L (24.0-44.0) % Monocytes % 9.4 (0.0-12.0) % Eosinophils % 0.8 (0.00-5.0) % Basophils % 0.2 (0.0-0.4) % Absolute Granulocytes 6.85 (1.4-6.9) x10^3/uL Basophils # 0.02 (0-0.4) x10^3/uL Sodium 137 (137-145) mmol/L Potassium 4.1 (3.5-5.1) mmol/L Chloride 104 (98-107) mmol/L Carbon Dioxide 27 (22-30) mmol/L Anion Gap 11.1 (5-15) MEQ/L BUN 15 (7-17) mg/dL Creatinine 0.91 (0.52-1.04) mg/dL Estimated GFR > 60.0 ML/MIN Glucose 88 (74-106) mg/dL Calcium 9.5 (8.4-10.2) mg/dL Total Bilirubin 0.90 (0.2-1.3) mg/dL AST 18 (14-36) U/L ALT 19 (0-35) U/L Alkaline Phosphatase 62 (38-126) U/L Troponin I < 0.012 (0.000-0.034) ng/mL Serum Total Protein 7.0 (6.3-8.2) g/dL Albumin 4.2 (3.5-5.0) g/dL Lipase 138 (23-300) U/L TSH 3rd Generation (0.47-4.68) mIU/L Urinalys Dipstick Clnc Urine Color (YELLOW) Urine Appearance (CLEAR) Urine pH (5-6) Ur Specific [place] (1.005-1.025) POC Urine Protein Conf (Negative) Urine Ketones (NEGATIVE) Urine Nitrite (NEGATIVE) Urine Bilirubin (NEGATIVE) Urine Urobilinogen (0-1) mg/dL Urine Leukocytes (NEGATIVE) Urine WBC (Auto) (0-5) /HPF Urine RBC (Auto) (0-2) /HPF U Epithel Cells (Auto) (FEW) /HPF Urine Bacteria (Auto) (NEGATIVE) /HPF Urine RBC (0-5) José/ul Urine Mucus (Auto) (NEGATIVE) /HPF Ur Culture Indicated? Urine Glucose (NEGATIVE) mg/dL Urine HCG, Qual (Negative) Urine Opiates Level (NEGATIVE) Ur Methadone (NEGATIVE) Urine Barbiturates (NEGATIVE) Ur Phencyclidine (PCP) (NEGATIVE) Urine Amphetamine (NEGATIVE) U Benzodiazepine Level (NEGATIVE) Urine Cocaine (NEGATIVE) Urine Marijuana (THC) (NEGATIVE) 03/18/22 Range/Units 10:12 WBC (4.0-10.5) x10^3/uL RBC (4.1-5.4) x10^6/uL Hgb (12.0-16.0) g/dL Hct (35-47) % MCV (78-100) fL MCH (26-32) pg MCHC (32-36) g/dL RDW (11.5-14.0) % Plt Count (150-450) x10^3/uL MPV (7.5-11.0) fL Gran % (36.0-66.0) % Immature Gran % (Auto) (0.00-0.4) % Nucleat RBC Rel Count (0.00-0.1) % Eos # (Auto) (0-0.5) x10^3/uL Immature Gran # (Auto) (0.00-0.03) x10^3u/L Absolute Lymphs (auto) (1.0-4.6) x10^3/uL Absolute Monos (auto) (0.0-1.3) x10^3/uL Absolute Nucleated RBC (0.00-0.01) x10^3u/L Lymphocytes % (24.0-44.0) % Monocytes % (0.0-12.0) % Eosinophils % (0.00-5.0) % Basophils % (0.0-0.4) % Absolute Granulocytes (1.4-6.9) x10^3/uL Basophils # (0-0.4) x10^3/uL Sodium (137-145) mmol/L Potassium (3.5-5.1) mmol/L Chloride (98-107) mmol/L Carbon Dioxide (22-30) mmol/L Anion Gap (5-15) MEQ/L BUN (7-17) mg/dL Creatinine (0.52-1.04) mg/dL Estimated GFR ML/MIN Glucose (74-106) mg/dL Calcium (8.4-10.2) mg/dL Total Bilirubin (0.2-1.3) mg/dL AST (14-36) U/L ALT (0-35) U/L Alkaline Phosphatase (38-126) U/L Troponin I (0.000-0.034) ng/mL Serum Total Protein (6.3-8.2) g/dL Albumin (3.5-5.0) g/dL Lipase (23-300) U/L TSH 3rd Generation 0.951 (0.47-4.68) mIU/L Urinalys Dipstick Clnc Urine Color (YELLOW) Urine Appearance (CLEAR) Urine pH (5-6) Ur Specific [place] (1.005-1.025) POC Urine Protein Conf (Negative) Urine Ketones (NEGATIVE) Urine Nitrite (NEGATIVE) Urine Bilirubin (NEGATIVE) Urine Urobilinogen (0-1) mg/dL Urine Leukocytes (NEGATIVE) Urine WBC (Auto) (0-5) /HPF Urine RBC (Auto) (0-2) /HPF U Epithel Cells (Auto) (FEW) /HPF Urine Bacteria (Auto) (NEGATIVE) /HPF Urine RBC (0-5) José/ul Urine Mucus (Auto) (NEGATIVE) /HPF Ur Culture Indicated? Urine Glucose (NEGATIVE) mg/dL Urine HCG, Qual (Negative) Urine Opiates Level (NEGATIVE) Ur Methadone (NEGATIVE) Urine Barbiturates (NEGATIVE) Ur Phencyclidine (PCP) (NEGATIVE) Urine Amphetamine (NEGATIVE) U Benzodiazepine Level (NEGATIVE) Urine Cocaine (NEGATIVE) Urine Marijuana (THC) (NEGATIVE) - Progress Progress: improved Progress Note: Patient reassessed. Pain resolved. 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 Spondylosis with grade 1 spondy lolisthesis. Laboratory work-up essentially nonremarkable. TSH normal. Amphetamine positive on urine toxicology screen. This may help explain patient's observed behavior upon arrival to our ED. Patient has bilateral conjunctivitis. Patient received erythromycin ophthalmic ointment in our ED. A prescription for the same was forwarded to patient's pharmacy. Patient agrees to follow-up with primary care doctor within 48 hours. Patient understand that she will need follow-up regarding this adrenal mass. This was explicitly explained to patient and she agrees to follow-up with her primary care doctor for further evaluation of this mass within 48 hours. Portions of this note were created with voice recognition technology. There may be grammatical, spelling, punctuation or sound alike errors 03/18/22 12:29 Counseled pt/family regarding: lab results, diagnosis, need for follow-up, rad results - Departure Departure Disposition: Home Clinical Impression: Conjunctivitis, Epigastric pain, Amphetamine use Condition: Stable Critical Care Time: No Referrals: JOCELINE DEGROOT [Primary Care Provider] - Follow up/PCP as directed Additional Instructions: Discharge/Care Plan CLAUDIA VIDAL was seen on 03/18/22 in the Emergency Room. The patient was counseled regarding Diagnosis,Lab results, Imaging studies, need for follow up and when to return to the Emergency Room. Prescriptions given: Discharge Note I have spoken with the patient and/or caregivers. I have explained the patient's condition, diagnosis and treatment plan based on the information available to me at this time. I have answered the patient's and/or caregiver's questions and addressed any concerns. The patient and/or caregivers have as good understanding of the patient's diagnosis, condition and treatment plan as can be expected at this point. The vital signs have been stable. The patient's condition is stable and appropriate for discharge from the emergency department. The patient will pursue further outpatient evaluation with the primary care physician or other designated or consulting physician as outlined in the discharge instructions. The patient and/or caregivers are agreeable to this plan of care and follow-up instructions have been explained in detail. The patient and/or caregivers have received these instruction. The patient/and or caregivers are aware that any significant change in condition or worsening of symptoms should prompt an immediate return to this or the closest emergency department or call 911. Prescriptions: Erythromycin Base 3.5 gm [Erythromycin 3.5 GM OPHTH.] 3.5 gm OP QID #1
[2022-03-18] MEDS ORDERED: Erythromycin 1 GM ONE (10:05)
[2022-03-18] MEDS ORDERED: Erythromycin 1 GM OP STA (10:06)
[2022-03-18 10:26] LABS: Absolute Neutrophil Ct (ANC) 6.85 x10^3/uL (1.4-6.9); Basophil (Absolute #) 0.02 x10^3/uL (0-0.4); Eosinophil % 0.8 % (0.00-5.0); Eosinophil (Absolute #) 0.07 x10^3/uL (0-0.5); Hemoglobin 12.9 g/dL (12.0-16.0); Lymphocyte (Absolute #) 1.44 x10^3/uL (1.0-4.6); Lymphocytes % 15.5 % (24.0-44.0); Mean Cell Volume 90.3 fL (78-100); Mean Corpuscular Hemoglobin 29.9 pg (26-32); Mean Corpuscular Hgb Concent. 33.1 g/dL (32-36); Mean Platelet Volume 9.8 fL (7.5-11.0); Monocyte (Absolute #) 0.87 x10^3/uL (0.0-1.3); Monocytes % 9.4 % (0.0-12.0); Neutrophil % 73.9 % (36.0-66.0); Platelet Count 235 x10^3/uL (150-450); Red Blood Count 4.32 x10^6/uL (4.1-5.4); Red Cell Distribution Width 16.2 % (11.5-14.0); White Blood Count 9.3 x10^3/uL (4.0-10.5)
[2022-03-18 10:39] LABS: ALBUMIN 4.2 g/dL (3.5-5.0); ALKALINE PHOSPHATASE 62 U/L (38-126); ANION GAP 11.1 MEQ/L (5-15); BLOOD UREA NITROGEN 15 mg/dL (7-17); CHLORIDE 104 mmol/L (98-107); Calcium 9.5 mg/dL (8.4-10.2); Carbon Dioxide 27 mmol/L (22-30); Creatinine 1 0.91 mg/dL (0.52-1.04); EST GLOMERULAR FILTRATION RATE > 60.0 ML/MIN; Glucose 88 mg/dL (74-106); LIPASE 138 U/L (23-300); Potassium 4.1 mmol/L (3.5-5.1); SGOT/AST 18 U/L (14-36); SGPT/ALT 19 U/L (0-35); SODIUM 137 mmol/L (137-145)
[2022-03-18 11:21] LABS: Appearance CLEAR (CLEAR); Bilirubin NEGATIVE (NEGATIVE); Dipstick done @ ? MAIN LAB; Glucose NEGATIVE (NEGATIVE); Ketones NEGATIVE (NEGATIVE); Nitrite NEGATIVE (NEGATIVE); Ph 5.5 (5-6); Protein,Urine Dip NEGATIVE (Negative); RBC NEGATIVE Ery/ul (0-5); Specific Gravity 1.025 (1.005-1.025); Urobilinogen 0.2 mg/dL (0-1)
[2022-03-18 11:29] LABS: Mucus SLIGHT /HPF (NEGATIVE)
[2022-03-18 11:33] LABS: Urine Cultured Indicated? NO
[2022-03-18 11:37] LABS: Amphetamine,Urine POSITIVE (NEGATIVE); Benzodiazepine,Urine NEGATIVE (NEGATIVE); Cocaine,Urine NEGATIVE (NEGATIVE); Methadone,Urine NEGATIVE (NEGATIVE); Opiate,Urine NEGATIVE (NEGATIVE); PCP,Urine NEGATIVE (NEGATIVE); THC,Urine NEGATIVE (NEGATIVE)
[2022-03-18 11:41] LABS: Barbiturate,Urine NEGATIVE (NEGATIVE)
--- NOTE | 2022-03-18 12:16 | XRAY ---
Exam: CT of the abdomen and pelvis without IV contrast from 03/18/2022. CTDI: 10.07 mGy Comparison: None. Indication: 31-year-old female who presents with epigastric abdominal pain today; history of prior cholecystectomy. Technique: Non-IV contrast axial images were obtained through the abdomen and pelvis. Reconstructed coronal and sagittal images were created and reviewed. Findings: The visualized lung bases are clear. I see no definite retrocardiac hiatal hernia. Assessment of the solid organs is limited without the use of IV contrast. The liver appears of normal size and uniform attenuation. No intrahepatic biliary duct distention is seen. Surgical clips are seen within the subhepatic space consistent with prior cholecystectomy. Greatest transverse diameter of the spleen is 14.1 cm suggesting some mild splenomegaly. No definite focal splenic mass is seen. The pancreas and right adrenal gland appear unremarkable. There is a 2.3 cm x 2.4 cm relatively round left adrenal gland mass which contains mostly fat as well as a small amount of soft tissue material. Region of interest measurement is -43.21 Hounsfield units. 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 The kidneys are of average size and shape. No renal calculi or hydronephrosis is seen. The abdominal aorta appears of normal diameter. No abnormal retroperitoneal lymphadenopathy is seen. No free intraperitoneal air or ventral abdominal wall hernia is seen. The appendix is seen within the right lower quadrant and appears unremarkable. Some scattered stool is noted throughout the colon. There is no evidence of bowel obstruction. The uterus is anteflexed. Both ovaries are identified and appear within normal limits. No abnormal pelvic mass, pelvic lymphadenopathy, or free intraperitoneal fluid is seen. The urinary bladder is partially empty. The bones reveal bilateral spondylolysis of L5 with grade 1 spondylolisthesis of L5 over S1. Some Schmorl's nodes are seen within the lower thoracic spine and upper lumbar spine. No acute fracture or aggressive bone lesion is seen. Impression: 1. I see no acute process within the abdomen or pelvis. There is no evidence of acute appendicitis. 2. 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
[2022-03-18 12:35] VITALS: BP 128/94; PULSE 84; O2SAT 98
== END 2022-03-18 12:39 | disposition home or self-care (01) ==
LOC: ED 09:27
DX: F15.90 Other stimulant use, unspecified, uncomplicated (principal); R10.13 Epigastric pain; H10.9 Unspecified conjunctivitis; R25.2 Cramp and spasm; Z72.0 Tobacco use; Z79.899 Other long term (current) drug therapy
CPT/HCPCS: 36415; 74176; 80053; 80307; 81015; 81025; 83690; 84443; 84484; 85025; 93005; 99283; A9270-GY